=== PATIENT | female | born 1960 | race Caucasian/White ===

== ENCOUNTER → 2018-07-20 13:00 | Outpatient (CLI) | payer BC, SELFPAY | PROVIDERS: Family Provider Nurse Practitioner Family; PCP Nurse Practitioner Family | DX: Z23 Encounter for immunization (principal) | CPT/HCPCS: 90471; 90686 ==

== ENCOUNTER → 2018-09-14 07:14 | Outpatient (CLI) | payer BC, SELFPAY ==
[2018-09-14 08:04] LABS: Alanine Aminotransferase 66 IU/L (9-52); Albumin 4.6 g/dL (3.5-5.0); Albumin Globulin Ratio 1.4 (1.0-2.8); Alkaline Phosphatase 64 U/L (38-126); Aspartate Aminotransferase 34 IU/L (14-36); Bilirubin Total 0.4 mg/dL (0.2-1.3); Blood Urea Nitrogen 16 mg/dL (7-17); Calcium 9.4 mg/dL (8.4-10.2); Carbon Dioxide 25 mmol/L (22-32); Chloride 106 mmol/L (98-107); Cholesterol 197 mg/dL (140-199); Estimated Glomerular Filt Rate > 60.0 mL/min (>60); Globulin 3.2 g/dL (1.7-4.1); Glucose 106 mg/dL (70-100); HDL Cholesterol 41 mg/dL (40-60); HEMOLYSIS < 15 (0-50); LDL Cholesterol Calculated 110 mg/dL (<100); Potassium 4.1 mmol/L (3.4-5.1); Sodium 145 mmol/L (137-145); Total Protein 7.8 g/dL (6.3-8.2); Triglycerides 231 mg/dL (35-150)
[2018-09-14 09:09] LABS: Thyroid Stimulating Hormone 0.75 uIU/mL (0.47-4.68)
== END ==
PROVIDERS: PCP Nurse Practitioner Family; Visit Provider Nurse Practitioner Family
DX: E03.9 Hypothyroidism, unspecified (principal)
CPT/HCPCS: 36415; 80053; 80061; 84443

== ENCOUNTER → 2018-11-12 13:10 | Outpatient (CLI) | payer BC, SELFPAY ==
--- NOTE | 2018-11-12 | DI.MG.S_ITS ---
BILATERAL DIGITAL SCREENING MAMMOGRAM 3D/2D WITH CAD: 11/12/2018 CLINICAL: Routine screening. Comparison is made to exams dated: 01/30/2017 mammogram - [facility], 01/24/2016 mammogram, and 03/30/2015 mammogram - [facility]. The tissue of both breasts is heterogeneously dense. This may lower the sensitivity of mammography. Current study was also evaluated with a Computer Aided Detection (CAD) system. No significant masses, calcifications, or other findings are seen in either breast. There has been no significant interval change. IMPRESSION: NEGATIVE There is no mammographic evidence of malignancy. A 1 year screening mammogram is recommended. This exam was interpreted at Station ID: [id number]. NOTE: For mammograms, a report in lay terms will be sent to the patient. Approximately 15% of breast malignancies will not be visualized mammographically. In the management of a palpable breast mass, a negative mammogram must not discourage biopsy of a clinically suspicious lesion. Electronically Signed By: Shreyas castle/annelise:11/12/2018 14:28:59 letter sent: Normal Exam ACR BI-RADS Category 1: Negative 3341F
== END ==
PROVIDERS: PCP Nurse Practitioner Family; Visit Provider Nurse Practitioner Family
DX: Z12.31 Encounter for screening mammogram for malignant neoplasm of breast (principal)
CPT/HCPCS: 77063; 77067

== ENCOUNTER → 2019-02-01 11:18 | Outpatient (CLI) | payer BC, SELFPAY ==
[2019-02-01 12:50] LABS: Alanine Aminotransferase 54 IU/L (9-52); Albumin 5.1 g/dL (3.5-5.0); Albumin Globulin Ratio 1.4 (1.0-2.8); Alkaline Phosphatase 66 U/L (38-126); Aspartate Aminotransferase 34 IU/L (14-36); Bilirubin Total 0.4 mg/dL (0.2-1.3); Bilirubin Unconjugated 0.3 mg/dL (0.0-1.1); Cholesterol 232 mg/dL (140-199); Globulin 3.6 g/dL (1.7-4.1); HDL Cholesterol 44 mg/dL (40-60); HEMOLYSIS < 15 (0-50); LDL Cholesterol Calculated 134 mg/dL (<100); Total Protein 8.7 g/dL (6.3-8.2); Triglycerides 268 mg/dL (35-150)
== END ==
PROVIDERS: PCP Nurse Practitioner Family; Visit Provider Nurse Practitioner Family
DX: R74.8 Abnormal levels of other serum enzymes (principal); E78.5 Hyperlipidemia, unspecified
CPT/HCPCS: 36415; 80061; 80076

== ENCOUNTER → 2020-08-13 08:18 | Outpatient (CLI) | payer OTHER, SELFPAY ==
[2020-08-13 09:23] LABS: Add Manual Diff / Slide Review NO; Basophils Absolute Auto 0 /uL (0-100); Eosinophils Absolute Auto 100 /uL (0-450); Eosinophils Percent Auto 2.3 % (2-4); Hematocrit 38.3 % (36-46); Hemoglobin 13.4 g/dL (12.0-16.0); Lymphocytes Absolute Auto 2200 /uL (1100-4500); Lymphocytes Percent Auto 54.8 % (25-40); Mean Corpuscular HGB Conc 34.9 % (30-36); Mean Corpuscular Hemoglobin 31.5 PG (26-34); Mean Corpuscular Volume 90.3 fL (80-100); Monocytes Absolute Auto 400 /uL (0-900); Monocytes Percent Auto 10.1 % (3-14); Neutrophils Absolute Auto 1200 /uL (1500-7000); Neutrophils Percent Auto 31.8 % (50-75); Platelet Count 227 X10^3/uL (150-400); Red Blood Cell Count 4.24 X10^6/uL (4.0-5.2); Red Cell Distribution Width 12.1 % (11.6-14.8); White Blood Cell Count 3.9 X10^3/uL (4.5-11.0)
[2020-08-13 09:38] LABS: Alanine Aminotransferase 41 IU/L (<35); Albumin 4.6 g/dL (3.5-5.0); Albumin Globulin Ratio 1.5 (1.0-2.8); Alkaline Phosphatase 58 U/L (38-126); Aspartate Aminotransferase 35 IU/L (14-36); BUN Creatinine Ratio 23.5 (6-22); Bilirubin Total 0.5 mg/dL (0.2-1.3); Blood Urea Nitrogen 20 mg/dL (7-17); Calcium 9.8 mg/dL (8.4-10.2); Carbon Dioxide 27 mmol/L (22-32); Chloride 107 mmol/L (98-107); Cholesterol 195 mg/dL (140-199); Estimated Glomerular Filt Rate > 60.0 mL/min (>60); Glucose 102 mg/dL (80-110); HDL Cholesterol 37 mg/dL (40-60); HEMOLYSIS < 15 (0-50); LDL Cholesterol Calculated 112 mg/dL (<100); Potassium 4.2 mmol/L (3.4-5.1); Sodium 140 mmol/L (137-145); Total Protein 7.6 g/dL (6.3-8.2); Triglycerides 232 mg/dL (35-150)
[2020-08-13 10:04] LABS: TSH w/ Reflex to FT4 0.57 uIU/mL (0.47-4.68)
== END ==
PROVIDERS: PCP Registered Nurse Diabetes Educator; Referring Provider Registered Nurse Diabetes Educator; Visit Provider Registered Nurse Diabetes Educator
DX: E78.5 Hyperlipidemia, unspecified (principal); I10 Essential (primary) hypertension; R73.9 Hyperglycemia, unspecified; R74.8 Abnormal levels of other serum enzymes
CPT/HCPCS: 36415; 80053; 80061; 83036; 84443; 85025

== ENCOUNTER → 2020-08-27 13:10 | Outpatient (CLI) | payer OTHER, SELFPAY ==
--- NOTE | 2020-08-27 | DI.MRI.S_ITS ---
PROCEDURE: MR STROKE Pre- and post-contrast brain MRI, non-contrast brain MR angiogram, pre- and postcontrast neck MR angiogram INDICATIONS: Unspecified visual disturbance TECHNIQUE: Brain: Noncontrast axial T1 spin echo, axial T2 fast spin echo, sagittal and axial FLAIR, coronal T2 fast spin echo, axial gradient echo, axial diffusion and ADC through the brain. After the administration of contrast, axial 3D VIBE of the cranial vasculature and brain. Brain MRA: Non-contrast 3-D time of flight MR angiogram, with multiple yjxbeoz-viqddiask-ospzzdzbim (MIP) reformats performed. Neck MRA: Axial and sagittal TruFISP through the neck. Coronal dynamic MR angiogram during administration of contrast in the arterial and venous phases, with 3-dimenstional hzafpun-yimagzzae-olnayapagf (MIP) reformats constructed from subtraction images. COMPARISON: None. FINDINGS: Image quality: Excellent. BRAIN: CSF spaces: Ventricles are normal in size and shape. Basal cisterns are patent. No extra-axial fluid collections. Brain: No intracranial bleeds or mass effects. Scattered small white matter changes, probably represent chronic microvascular ischemic disease, versus statistically less likely demyelination or other infectious, inflammatory, neurodegenerative etiology, technically nonspecific. [place]-white matter interface is normal. Diffusion weighted images show no acute ischemic insults. Brainstem appears normal. Normal intravascular flow voids are present. No abnormal intracranial enhancement. Skull and face: Calvarial marrow signal is normal. Orbits appear normal. Sinuses: Sinuses and mastoids are clear. BRAIN MR ANGIOGRAM: Anterior circulation: Intracranial internal carotid arteries are normal in size and enhancement. The flow within the paired anterior cerebral arteries is normal and symmetric. The flow within the middle cerebral arteries is normal and symmetric. The anterior communicating artery is seen. No stenoses, occlusions, or aneurysms. Posterior circulation: The visualized portions of the vertebral arteries demonstrate normal caliber, and join to form a normal appearing basilar artery. The flow within the posterior cerebral arteries is normal and symmetric. No stenoses, occlusions, or aneurysms. NECK MR ANGIOGRAM: Carotids: Great vessels demonstrate a conventional anatomy as they arise from the aortic arch. The origins of the common carotid arteries appear patent. The calibers and courses of both common carotid arteries are normal. The bifurcation regions appear normal bilaterally. The internal carotid arteries demonstrate normal course and caliber. Posterior circulation: The origins of the vertebral arteries appear patent. More superior portions of both vertebral arteries demonstrate normal course and caliber, and join to form a normal appearing basilar artery. Miscellaneous: Subclavian arteries appear patent. Pre-contrast images through the neck show no soft tissue abnormalities. IMPRESSION: BRAIN MRI: No evidence of acute ischemia. Diffuse small white matter changes, probably represent chronic microvascular ischemic disease, versus statistically less likely demyelination or other infectious, inflammatory, neurodegenerative etiology, technically nonspecific. BRAIN MR ANGIOGRAM: No intracranial stenosis or occlusion NECK MR ANGIOGRAM: Normal examination. Dictated by: Ifeanyi Jones M.D. on 08/27/2020 at 14:59 Approved by: Ifeanyi Jones M.D. on 08/27/2020 at 15:06
== END ==
PROVIDERS: PCP Registered Nurse Diabetes Educator; Referring Provider Registered Nurse Diabetes Educator; Visit Provider Registered Nurse Diabetes Educator
DX: H53.9 Unspecified visual disturbance (principal)
CPT/HCPCS: 70548; 70553; A9579

== ENCOUNTER → 2020-09-05 11:37 | Outpatient (CLI) | payer OTHER, SELFPAY ==
--- NOTE | 2020-09-05 11:38 | DI.MG.S_ITS ---
BILATERAL DIGITAL SCREENING MAMMOGRAM 3D/2D WITH CAD: 09/05/2020 CLINICAL: Routine screening. Comparison is made to exams dated: 11/12/2018 mammogram, 01/30/2017 mammogram - [facility], and 01/24/2016 mammogram - [facility] The tissue of both breasts is heterogeneously dense. This may lower the sensitivity of mammography. Current study was also evaluated with a Computer Aided Detection (CAD) system. No significant masses, calcifications, or other findings are seen in either breast. There has been no significant interval change. IMPRESSION: NEGATIVE There is no mammographic evidence of malignancy. A 1 year screening mammogram is recommended. This exam was interpreted at Station ID: [id number]. NOTE: For mammograms, a report in lay terms will be sent to the patient. Approximately 15% of breast malignancies will not be visualized mammographically. In the management of a palpable breast mass, a negative mammogram must not discourage biopsy of a clinically suspicious lesion. Electronically Signed By: Geovanna maher/annelise:09/05/2020 17:01:10 letter sent: Normal Exam ACR BI-RADS Category 1: Negative 3341F
== END ==
PROVIDERS: PCP Registered Nurse Diabetes Educator; Referring Provider Registered Nurse Diabetes Educator; Visit Provider Registered Nurse Diabetes Educator
DX: Z12.31 Encounter for screening mammogram for malignant neoplasm of breast (principal)
CPT/HCPCS: 77063; 77067

== ENCOUNTER → 2020-12-28 08:29 | Outpatient (CLI) | payer OTHER, SELFPAY ==
[2020-12-28 09:48] LABS: Add Manual Diff / Slide Review NO; Basophils Absolute Auto 100 /uL (0-100); Basophils Percent Auto 1.2 % (0-2); Eosinophils Absolute Auto 100 /uL (0-450); Eosinophils Percent Auto 3.1 % (2-4); Hematocrit 39.9 % (36-46); Hemoglobin 14.1 g/dL (12.0-16.0); Lymphocytes Absolute Auto 2200 /uL (1100-4500); Lymphocytes Percent Auto 46.7 % (25-40); Mean Corpuscular HGB Conc 35.3 % (30-36); Mean Corpuscular Hemoglobin 31.4 PG (26-34); Mean Corpuscular Volume 89.1 fL (80-100); Monocytes Absolute Auto 400 /uL (0-900); Monocytes Percent Auto 8.9 % (3-14); Neutrophils Absolute Auto 1900 /uL (1500-7000); Neutrophils Percent Auto 40.1 % (50-75); Platelet Count 225 X10^3/uL (150-400); Red Blood Cell Count 4.47 X10^6/uL (4.0-5.2); Red Cell Distribution Width 12.6 % (11.6-14.8); White Blood Cell Count 4.7 X10^3/uL (4.5-11.0)
[2020-12-28 10:03] LABS: Alanine Aminotransferase 47 IU/L (<35); Albumin 4.6 g/dL (3.5-5.0); Albumin Globulin Ratio 1.3 (1.0-2.8); Alkaline Phosphatase 55 U/L (38-126); Aspartate Aminotransferase 35 IU/L (14-36); Bilirubin Total 0.4 mg/dL (0.2-1.3); Bilirubin Unconjugated 0.4 mg/dL (0.0-1.1); Cholesterol 169 mg/dL (140-199); Globulin 3.6 g/dL (1.7-4.1); HDL Cholesterol 44 mg/dL (40-60); HEMOLYSIS < 15 (0-50); LDL Cholesterol Calculated 81 mg/dL (<100); Total Protein 8.2 g/dL (6.3-8.2); Triglycerides 221 mg/dL (35-150)
== END ==
PROVIDERS: PCP Registered Nurse Diabetes Educator; Referring Provider Registered Nurse Diabetes Educator; Visit Provider Registered Nurse Diabetes Educator
DX: D72.819 Decreased white blood cell count, unspecified (principal); E78.5 Hyperlipidemia, unspecified; R74.8 Abnormal levels of other serum enzymes
CPT/HCPCS: 36415; 80061; 80076; 85025

== ENCOUNTER → 2021-12-26 12:18 | Outpatient (CLI) | payer OTHER, SELFPAY ==
--- NOTE | 2021-12-26 | DI.MG.S_ITS ---
BILATERAL DIGITAL SCREENING MAMMOGRAM 3D/2D WITH CAD: 12/26/2021 CLINICAL: Routine screening. Comparison is made to exams dated: 09/05/2020 mammogram, 11/12/2018 mammogram, and 01/30/2017 mammogram - [facility]. The tissue of both breasts is heterogeneously dense. This may lower the sensitivity of mammography. Current study was also evaluated with a Computer Aided Detection (CAD) system. No significant masses, calcifications, or other findings are seen in either breast. There has been no significant interval change. IMPRESSION: NEGATIVE There is no mammographic evidence of malignancy. A 1 year screening mammogram is recommended. This exam was interpreted at Station ID: [id number]. NOTE: For mammograms, a report in lay terms will be sent to the patient. Approximately 15% of breast malignancies will not be visualized mammographically. In the management of a palpable breast mass, a negative mammogram must not discourage biopsy of a clinically suspicious lesion. Electronically Signed By: Sebastian Pa M.D., jr/annelise:12/26/2021 16:37:57 letter sent: Normal Exam ACR BI-RADS Category 1: Negative 3341F
== END ==
PROVIDERS: PCP Registered Nurse Diabetes Educator; Referring Provider Registered Nurse Diabetes Educator; Visit Provider Registered Nurse Diabetes Educator
DX: Z12.31 Encounter for screening mammogram for malignant neoplasm of breast (principal)
CPT/HCPCS: 77063; 77067

== ENCOUNTER → 2022-05-02 10:36 | Outpatient (CLI) | payer OTHER, SELFPAY ==
--- NOTE | 2022-05-02 10:38 | DI.US.S_ITS ---
PROCEDURE: US ABDOMEN LIMITED INDICATIONS: Liver enzyme elevation TECHNIQUE: Real-time focused scanning was performed of the abdomen, with image documentation. COMPARISON: None. FINDINGS: The liver demonstrates normal size. The liver demonstrates generalized moderately increased echogenicity. This decreases ultrasound sensitivity for detection of hepatic masses. No findings of gallstones or sludge are seen. The gallbladder wall is not thickened, measuring 3 mm or less. No specific pericholecystic fluid is seen. The sonographic [place] sign is negative. There is no biliary dilatation, the common bile duct measures 2 mm. No significant pancreatic abnormality is seen on these images. IMPRESSION: The liver demonstrates increased echogenicity. This finding is nonspecific, yet it is most commonly attributed to fatty infiltration. The gallbladder demonstrates a normal sonographic appearance. No biliary dilatation is seen. Dictated by: True Lovell M.D. on 05/02/2022 at 10:31 Approved by: True Lovell M.D. on 05/02/2022 at 10:32
== END ==
PROVIDERS: PCP Registered Nurse Diabetes Educator; Referring Provider Registered Nurse Diabetes Educator; Visit Provider Registered Nurse Diabetes Educator
DX: R74.8 Abnormal levels of other serum enzymes (principal)
CPT/HCPCS: 76705

== ENCOUNTER → 2023-02-21 10:20 | Outpatient (CLI) | payer OTHER, SELFPAY ==
--- NOTE | 2023-02-21 | DI.MG.S_ITS ---
BILATERAL DIGITAL SCREENING MAMMOGRAM 3D/2D WITH CAD: 02/21/2023 CLINICAL: Routine screening. Comparison is made to exams dated: 12/26/2021 mammogram, 09/05/2020 mammogram, and 11/12/2018 mammogram - . Both breasts are heterogeneously dense, which may obscure small masses (category c / 51-75% glandular tissue). Current study was also evaluated with a Computer Aided Detection (CAD) system. No significant masses, calcifications, or other findings are seen in either breast. There has been no significant interval change. IMPRESSION: NEGATIVE There is no mammographic evidence of malignancy. A 1 year screening mammogram is recommended. Based on the Tyrer Cuzick model (a risk assessment model) the patient's lifetime risk is 7.9% and her 10 year risk is 3.5%. According to the ACR, ACS, and NCCN guidelines, an annual breast MRI exam along with mammogram is recommended if the patient's lifetime risk is 20% or greater. This exam was interpreted at Station ID: [id number]. NOTE: For mammograms, a report in lay terms will be sent to the patient. Approximately 15% of breast malignancies will not be visualized mammographically. In the management of a palpable breast mass, a negative mammogram must not discourage biopsy of a clinically suspicious lesion. Electronically Signed By: Andrea richter/annelise:02/23/2023 10:12:51 letter sent: Normal Exam ACR BI-RADS Category 1: Negative 3341F
== END ==
PROVIDERS: PCP Registered Nurse Diabetes Educator; Referring Provider Registered Nurse Diabetes Educator; Visit Provider Registered Nurse Diabetes Educator
DX: Z12.31 Encounter for screening mammogram for malignant neoplasm of breast (principal)
CPT/HCPCS: 77063; 77067

== ENCOUNTER 2023-07-17 12:14 | Emergency (ER) | payer OTHER, SELFPAY ==
[2023-07-17] VITALS (15 sets, daily range): BP systolic 116–197; BP diastolic 50–97; PULSE 52–69; RESP 12; TEMP 36.3; O2SAT 96–100; BMI 27.4
[2023-07-17 13:16] LABS: Add Manual Diff / Slide Review NO; Basophils Absolute Auto 0 /uL (0-100); Basophils Percent Auto 0.5 % (0-2); Eosinophils Absolute Auto 0 /uL (0-450); Eosinophils Percent Auto 0.6 % (2-4); Hematocrit 37.9 % (36-46); Hemoglobin 13.2 g/dL (12.0-16.0); Lymphocytes Absolute Auto 1300 /uL (1100-4500); Lymphocytes Percent Auto 17.7 % (25-40); Mean Corpuscular HGB Conc 34.8 % (30-36); Mean Corpuscular Hemoglobin 31.3 PG (26-34); Mean Corpuscular Volume 90.2 fL (80-100); Monocytes Absolute Auto 300 /uL (0-900); Monocytes Percent Auto 4.5 % (3-14); Neutrophils Absolute Auto 5500 /uL (1500-7000); Neutrophils Percent Auto 76.7 % (50-75); Platelet Count 208 X10^3/uL (150-400); Red Cell Distribution Width 12.4 % (11.6-14.8); White Blood Cell Count 7.1 X10^3/uL (4.5-11.0)
[2023-07-17 13:28] LABS: Alanine Aminotransferase 44 IU/L (<35); Albumin 4.5 g/dL (3.5-5.0); Albumin Globulin Ratio 1.3 (1.0-2.8); Alkaline Phosphatase 68 U/L (38-126); Aspartate Aminotransferase 39 IU/L (14-36); Bilirubin Total 0.6 mg/dL (0.2-1.3); Blood Urea Nitrogen 15 mg/dL (7-17); Calcium 9.3 mg/dL (8.4-10.2); Carbon Dioxide 22 mmol/L (22-32); Chloride 106 mmol/L (98-107); Estimated Glomerular Filt Rate > 60 mL/min (>60); Globulin 3.4 g/dL (1.7-4.1); Glucose 126 mg/dL (80-110); HEMOLYSIS 15 (0-50); Lipase 104 U/L (23-300); Potassium 4.2 mmol/L (3.4-5.1); Sodium 137 mmol/L (137-145); Total Protein 7.9 g/dL (6.3-8.2)
--- NOTE | 2023-07-17 13:32 | DI.CT.S_ITS ---
PROCEDURE: CT KIDNEY URETER BLADDER (KUB) INDICATIONS: Left side pain TECHNIQUE: Axial sections were acquired from the lung bases to the pubic symphysis. Coronal and sagittal reformats were performed. For radiation dose reduction, the following was used: automated exposure control, adjustment of mA and/or kV according to patient size. COMPARISON: None. FINDINGS: Image quality: Excellent. Lung bases: Unremarkable. Heart: No significant findings. URINARY: Right Kidney: No stones or hydronephrosis. Right Ureter: No hydroureter. Left Kidney: No stones or hydronephrosis. Left Ureter: No hydroureter but there is a 1.5 mm calcification in the expected course of the lower 3rd of the left ureter a blood of the bladder level seen on CT series 2, image 75. Bladder: Normal wall thickness. No stones. ABDOMEN: Liver: Unremarkable except for several scattered punctate calcified granulomas. Gallbladder: Unremarkable. Biliary ducts: Unremarkable. Pancreas: Unremarkable. Spleen: Unremarkable except for scattered punctate calcifications consistent with old granulomatous disease.. Adrenal Glands: Unremarkable. Stomach and Bowel: Stomach, small bowel loops, and colon are unremarkable. Peritoneum: No abnormal intraperitoneal fluid. No free air. Ventral Wall: No hernia. Abdominal Nodes: No enlarged retroperitoneal or mesenteric lymph nodes. Vessels: Aorta and inferior vena cava are normal in size. PELVIS: Pelvic Organs: Unremarkable. Pelvic Nodes: Unremarkable. Miscellaneous: No inguinal hernias are seen. Bones: Unremarkable. IMPRESSION: Scattered punctate calcifications are present within the liver and spleen, consistent with distant past old granulomatous disease. No hydronephrosis or nephrolithiasis bilaterally within the kidneys but there is a small 1.5 mm calcification in the expected course of the distal left ureter above the bladder level, presumably a nonobstructive very small ureteral calculus in this clinical circumstance. Dictated by: Eb Perez M.D. on 07/17/2023 at 14:04 Approved by: Eb Perez M.D. on 07/17/2023 at 14:10
--- NOTE | 2023-07-17 13:33 | ED_ITS ---
HPI - Abdominal Pain General Chief Complaint: Abdominal Pain Stated Complaint: N/D clamy extreme pain lower L ab to back Time Seen by Provider: 07/17/23 13:24 Source: patient Mode of arrival: Family Vehicle History of Present Illness HPI narrative: Patient here with complains of left lower abdominal/flank pain. Sudden onset at around 10:00 a.m.. Took ibuprofen at 11:00 a.m.. Symptoms have resolved. Patient was on the toilet at home. Had sudden onset of pain with sweating and nausea. No hematuria. No dysuria. No frequency. Never had this pain before. Patient in no distress. Related Data Home Medications Medication Instructions Recorded Confirmed cholecalciferol (vitamin D3) PO 02/17/22 07/06/23 flaxseed oil 1,000 mg capsule 1,000 mg PO DAILY 02/17/22 07/06/23 one a day womens multivit 50+ PO 02/17/22 07/06/23 vitamin B complex (B 1 tab PO DAILY 02/17/22 07/06/23 Complex-Vitamin B12 tablet) zinc 50 mg tablet 50 mg PO DAILY 02/17/22 07/06/23 Previous Rx's Medication Instructions Recorded atorvastatin 20 mg tablet 20 mg PO BEDTIME #90 tabs 03/30/23 levothyroxine 100 mcg tablet 100 mcg PO DAILY #90 tabs 03/30/23 (Synthroid) losartan 50 mg tablet 50 mg PO DAILY #90 tabs 05/18/23 ketoconazole 2 % topical cream 1 applic topical BID #60 grams 07/06/23 hydrocodone 5 mg-acetaminophen 325 1 tab PO Q6H PRN pain #16 tabs 07/17/23 mg tablet ibuprofen 600 mg tablet 600 mg PO Q6H PRN fever or pain 07/17/23 #24 tabs ondansetron 4 mg disintegrating 4 mg PO Q8H PRN nausea and 07/17/23 tablet vomiting #10 tabs tamsulosin 0.4 mg capsule 0.4 mg PO DAILY #7 caps 07/17/23 Allergies Allergy/AdvReac Type Severity Reaction Status Date / Time seasonal Allergy Mild UR symptoms Uncoded 07/06/23 13:31 Review of Systems Review of Systems Narrative: GENERAL: negative chills, fatigue, malaise, fever, sweats. HEENT: negative sinus pain, ear pain, sore throat RESPIRATORY: negative dyspnea, cough CARDIOVASCULAR: negative chest pain, palpitations GASTROINTESTINAL: Positive nausea, negative vomiting, positive abdominal pain : negative dysuria, frequency, hematuria MUSCULOSKELETAL: negative muscle or bony pain SKIN: negative rash, skin lesions NEUROLOGIC: negative weakness, numbness ROS Unobtainable: All systems reviewed & are unremarkable except as noted in HPI and below Patient History Medical History Dyslipidemia Fatty liver disease, nonalcoholic Headache Hyperglycemia Hypertension Hypothyroidism Impaired fasting blood sugar Liver enzyme elevation Visual changes Social History Smoking Status: Former smoker Smoking Status: Former smoker tobacco type: cigarettes alcohol intake frequency: holidays/special occasions only Substance Use Type: does not use Exam Narrative Exam Narrative: GENERAL: in no distress, not toxic not dyspneic HEAD: Normocephalic. EYES: Pupils equal round ENT: Mucous membranes moist. NECK: Trachea midline. CARDIOVASCULAR: Regular rate and rhythm RESPIRATORY: Clear to auscultation. Breath sounds equal bilaterally. No wheezes, rales, or rhonchi. GASTROINTESTINAL: Abdomen soft, non-tender EXTREMITIES: No gross deformities. BACK: No flank tenderness. NEURO: AOx4. SKIN: Warm and dry PSYCH: Not anxious, is cooperative Initial Vital Signs Initial Vital Signs: Vital Signs Pulse Rate 56 L 07/17/23 12:25 Pulse Oximetry 100 07/17/23 12:25 Course Orders Ordered: Discontinued Medications Sodium Chloride (Normal Saline 0.9%) 1,000 mls @ 1,000 mls/hr IV BOLUS ONE Stop: 07/17/23 14:31 Last Infusion: 07/17/23 14:48 Dose: 0 mls/hr Documented By: AMJadon Admin: 07/17/23 13:39 Dose: 1,000 mls/hr Documented By: EVIE Ondansetron HCl (Ondansetron 4 Mg Odt) 4 mg PO NOW PRN PRN Reason: Nausea And Vomiting Ondansetron HCl (Ondansetron 4 Mg/2 Ml Inj) 4 mg IV NOW PRN PRN Reason: Nausea And Vomiting Tamsulosin HCl (Tamsulosin 0.4 Mg Capsule) 0.4 mg PO NOW ONE Stop: 07/17/23 16:09 Last Admin: 07/17/23 16:13 Dose: 0.4 mg Documented By: MPO Vital Signs Vital signs: Vital Signs - 8 hr 07/17/23 12:31 07/17/23 12:25 07/17/23 12:30 Temperature 97.4 F L Pulse Rate 57 L 56 L Respiratory Rate 12 Blood Pressure 197/97 H Pulse Oximetry 97 100 99 Oxygen Delivery Method Room Air 07/17/23 12:31 07/17/23 12:31 07/17/23 13:00 Temperature Pulse Rate 52 L 53 L Respiratory Rate Blood Pressure 163/72 H Pulse Oximetry 98 97 Oxygen Delivery Method 07/17/23 13:01 07/17/23 13:01 07/17/23 13:30 Temperature Pulse Rate 54 L Respiratory Rate Blood Pressure 141/60 H 147/70 H Pulse Oximetry 98 Oxygen Delivery Method 07/17/23 13:30 07/17/23 13:50 07/17/23 13:50 Temperature Pulse Rate 69 64 Respiratory Rate Blood Pressure 124/59 L Pulse Oximetry 97 100 Oxygen Delivery Method 07/17/23 14:00 07/17/23 14:00 07/17/23 14:30 Temperature Pulse Rate 52 L Respiratory Rate Blood Pressure 125/63 131/62 Pulse Oximetry 100 Oxygen Delivery Method 07/17/23 14:30 07/17/23 14:56 07/17/23 14:56 Temperature Pulse Rate 60 54 L Respiratory Rate Blood Pressure 132/63 Pulse Oximetry 98 99 Oxygen Delivery Method 07/17/23 15:00 07/17/23 15:00 07/17/23 15:30 Temperature Pulse Rate 60 64 Respiratory Rate Blood Pressure 116/50 L Pulse Oximetry 96 96 Oxygen Delivery Method 07/17/23 15:31 07/17/23 15:31 Temperature Pulse Rate 56 L Respiratory Rate Blood Pressure 126/58 L Pulse Oximetry 97 Oxygen Delivery Method MDM - Abdominal Pain Lab Data 07/17/23 12:59 07/17/23 12:59 Labs: Lab Results 07/17/23 07/17/23 07/17/23 Range/Units 12:59 12:59 15:00 WBC 7.1 (4.5-11.0) X10^3/uL RBC 4.20 (4.0-5.2) X10^6/uL Hgb 13.2 (12.0-16.0) g/dL Hct 37.9 (36-46) % MCV 90.2 (80-100) fL MCH 31.3 (26-34) PG MCHC 34.8 (30-36) % RDW 12.4 (11.6-14.8) % Plt Count 208 (150-400) X10^3/uL Neut % (Auto) 76.7 H (50-75) % Lymph % (Auto) 17.7 L (25-40) % Williamson % (Auto) 4.5 (3-14) % Eos % (Auto) 0.6 L (2-4) % Baso % (Auto) 0.5 (0-2) % Neut # (Auto) 5500 (9325-9020) /uL Lymph # (Auto) 1300 (4935-7991) /uL Williamson # (Auto) 300 (0-900) /uL Eos # (Auto) 0 (0-450) /uL Baso # (Auto) 0 (0-100) /uL Sodium 137 (137-145) mmol/L Potassium 4.2 (3.4-5.1) mmol/L Chloride 106 (98-107) mmol/L Carbon Dioxide 22 (22-32) mmol/L BUN 15 (7-17) mg/dL Creatinine 0.88 (0.52-1.04) mg/dL Estimated GFR > 60 (>60) mL/min BUN/Creatinine Ratio 17.0 (6-22) Glucose 126 H (80-110) mg/dL Calcium 9.3 (8.4-10.2) mg/dL Total Bilirubin 0.6 (0.2-1.3) mg/dL AST 39 H (14-36) IU/L ALT 44 H (<35) IU/L Alkaline Phosphatase 68 (38-126) U/L Total Protein 7.9 (6.3-8.2) g/dL Albumin 4.5 (3.5-5.0) g/dL Globulin 3.4 (1.7-4.1) g/dL Albumin/Globulin Ratio 1.3 (1.0-2.8) Lipase 104 (23-300) U/L Urine RBC 5-10/hpf H (0-5/HPF) Urine WBC 1-5/hpf (0-5/HPF) Ur Squamous Epith Cells 1-5 /hpf (0-5/HPF) Urine Bacteria Few (2-10) H (None) Ur Culture Indicated? Specimen cultured Point of care testing: Urine Dip Bedside Urine Glucose Negative Bedside Urine Bilirubin - Negative Bedside Urine Ketone + 15 Urine Specific Fischer 1.025 Bedside Urine Occult Blood +++ Bedside Urine pH 5.5 Bedside Urine Protein +/- 15 Bedside Urine Urobilinogen - Negative Bedside Urine Nitrite - Negative Bedside Urine Leukocytes +/- [address] scan - abdomen/pelvis: Radiologist's Impression: [address] [address] [address] Scan Report Signed Patient: Ele Pettit MR#: [id number] : 1960 Acct:[id number] Age/Sex: 63 / F Date of Service: 07/17/23 Loc: ED Accession Number: [id number] ?? Procedure: CT kidney ureter bladder (KUB) Ordering Provider: Alexandru Acuña MD PROCEDURE:? CT KIDNEY URETER BLADDER (KUB) ? INDICATIONS:? Left side pain ? TECHNIQUE:? Axial sections were acquired from the lung bases to the pubic symphysis.? Coronal and sagittal reformats were performed.? For radiation dose reduction, the following was used: ?automated exposure control, adjustment of mA and/or kV according to patient size.? ? COMPARISON:? None. ? FINDINGS:? Image quality:? Excellent.? ? Lung bases:? Unremarkable.? ? Heart:? No significant findings. ? URINARY: Right Kidney: ? No stones or hydronephrosis.? Right Ureter:? No hydroureter.? ? Left Kidney: ? No stones or hydronephrosis. Left Ureter:? No hydroureter but there is a 1.5 mm calcification in the expected course of the lower 3rd of the left ureter a blood of the bladder level seen on CT series 2, image 75.? ? Bladder:? Normal wall thickness. No stones. ? ? ? ABDOMEN: Liver:? Unremarkable except for several scattered punctate calcified granulomas.? ? Gallbladder:? Unremarkable.? ? Biliary ducts:? Unremarkable.? ? Pancreas:? Unremarkable.? ? Spleen:? Unremarkable except for scattered punctate calcifications consistent with old granulomatous disease..? ? Adrenal Glands:? Unremarkable.? ? ? Stomach and Bowel:? Stomach, small bowel loops, and colon are unremarkable.? Peritoneum:? No abnormal intraperitoneal fluid.? No free air.? ? Ventral Wall: ? No hernia.? Abdominal Nodes:? No enlarged retroperitoneal or mesenteric lymph nodes.? Vessels:? Aorta and inferior vena cava are normal in size.? ? PELVIS: Pelvic Organs:? Unremarkable.? ? Pelvic Nodes: Unremarkable. Miscellaneous: No inguinal hernias are seen. ? ? ? Bones:? Unremarkable. ? IMPRESSION:? ? Scattered punctate calcifications are present within the liver and spleen, consistent with distant past old granulomatous disease.? No hydronephrosis or nephrolithiasis bilaterally within the kidneys but there is a small 1.5 mm calcification in the expected course of the distal left ureter above the bladder level, presumably a nonobstructive very small ureteral calculus in this clinical circumstance. ? Dictated by: Eb Perez M.D. on 07/17/2023 at 14:04 ? ? Approved by: Eb Perez M.D. on 07/17/2023 at 14:10 ? MDM Narrative Medical decision making narrative: Patient here with complains of left lower abdominal/flank pain. Sudden onset at around 10:00 a.m.. Took ibuprofen at 11:00 a.m.. Symptoms have resolved. Patient was on the toilet at home. Had sudden onset of pain with sweating and nausea. No hematuria. No dysuria. No frequency. Never had this pain before. Patient in no distress. After history and exam CBC CMP urinalysis CT KUB normal saline MDM CC: Left-sided abdominal pain Complicating co-morbidities: None Data collected from: Patient and Medical records reviewed: No recent visit for this complaint Differential considered: Includes but not limited to kidney stone ureteral stone UTI pyelonephritis diverticulosis diverticulitis bowel obstruction Exam documented above, pertinent findings include: Nontender abdomen Lab Test results independently reviewed as above. Pertinent findings: WBC 7.1 sodium 137 potassium 4.2 AST 39 ALT 44 lipase 104 RBC 5-10 WBC 1-5 few bacteria Imaging studies independently reviewed: CT KUB ureteral stone left side 1.5 mm Treatments: Normal saline Flomax Re-evaluations: 4:00 p.m.. Patient remains pain-free. Reviewed results with patient and . Return precautions reviewed with them. CT imaging shows kidney stone. Prescriptions provided. Referrals for Urology provided. They agree with treatment plan follow-up with urology. Discussion: Appropriate for discharge home. No pain during course of stay. Return precautions reviewed with patient and . Referral for Urology provided. Prescriptions provided as well. Not toxic at discharge. Return precautions reviewed. They desire discharge home Diagnosis: Ureteral stent Discharge Plan Departure Patient Disposition: Home Clinical Impression: Calculus of distal left ureter Instructions: DI for Kidney Stones Activity Restrictions/Additional Instructions: No driving or operating machinery when taking prescribed pain medication. CT sc an imaging does show a kidney stone that should pass. Please call provided urology offices on Thursday for office re-evaluation within a week. Return if worse if any questions or concerns. Prescription medications have been provided for you. Keep well hydrated. Prescriptions: New hydrocodone-acetaminophen 5-325 mg tablet 1 tab PO Q6H PRN (Reason: pain) Qty: 16 0RF tamsulosin 0.4 mg capsule 0.4 mg PO DAILY Qty: 7 0RF ibuprofen 600 mg tablet 600 mg PO Q6H PRN (Reason: fever or pain) Qty: 24 0RF ondansetron 4 mg tablet,disintegrating 4 mg PO Q8H PRN (Reason: nausea and vomiting) Qty: 10 0RF No Action cholecalciferol (vitamin D3) PO Patient Comments: 50 mcg daily flaxseed oil 1,000 mg capsule 1,000 mg PO DAILY Rx Instructions: administer with a meal one a day womens multivit 50+ PO zinc 50 mg tablet 50 mg PO DAILY vitamin B complex [B Complex-Vitamin B12] Tablet 1 tab PO DAILY Rx Instructions: 1,000 mg daily levothyroxine [Synthroid] 100 mcg tablet 100 mcg PO DAILY Qty: 90 3RF atorvastatin 20 mg tablet 20 mg PO BEDTIME Qty: 90 3RF losartan 50 mg tablet 50 mg PO DAILY Qty: 90 0RF ketoconazole 2 % cream 1 applic topical BID Qty: 60 0RF Referrals: Dannie Reza MD [Physician] - Alexandru Santo MD [Physician] - Chris Stark ARNP [Primary Care Provider] - Stand Alone Forms: Patient Portal/API
[2023-07-17] MEDS: SODIUM CHLORIDE 0.9% 1,000 ML 1000 ML IV (13:39)
[2023-07-17 15:54] LABS: Bacteria Urine Few (2-10); Culture Indicated Urine Specimen Cultured; RBC Urine 5-10/HPF (0-5/HPF); Squamous Epithelial Cell Urine 1-5 /HPF (0-5/HPF); WBC Urine 1-5/HPF (0-5/HPF)
[2023-07-17] MEDS: TAMSULOSIN 0.4 MG CAPSULE PO (16:13)
== END 2023-07-17 16:20 | disposition home or self-care (01) ==
PROVIDERS: Emergency Provider Emergency Medicine; PCP Registered Nurse Diabetes Educator
DX: N20.1 Calculus of ureter (principal)
CPT/HCPCS: 36415; 74176; 80053; 81003; 81015; 83690; 85025; 87086; 96360; 99284

== ENCOUNTER → 2024-02-23 09:06 | Outpatient (CLI) | payer OTHER, SELFPAY ==
--- NOTE | 2024-02-23 | DI.MG.S_ITS ---
BILATERAL DIGITAL SCREENING MAMMOGRAM 3D/2D WITH CAD: 02/23/2024 CLINICAL: Routine screening. Comparison is made to exams dated: 02/21/2023 mammogram, 12/26/2021 mammogram, and 09/05/2020 mammogram - [facility]. Both breasts are heterogeneously dense, which may obscure small masses (category c / 51-75% glandular tissue). Current study was also evaluated with a Computer Aided Detection (CAD) system. No significant masses, calcifications, or other findings are seen in either breast. There has been no significant interval change. IMPRESSION: NEGATIVE There is no mammographic evidence of malignancy. A 1 year screening mammogram is recommended. Based on the Tyrer Cuzick model (a risk assessment model) the patient's lifetime risk is 7.6% and her 10 year risk is 3.5%. According to the ACR, ACS, and NCCN guidelines, an annual breast MRI exam along with mammogram is recommended if the patient's lifetime risk is 20% or greater. This exam was interpreted at Station ID: [id number]. NOTE: For mammograms, a report in lay terms will be sent to the patient. Approximately 15% of breast malignancies will not be visualized mammographically. In the management of a palpable breast mass, a negative mammogram must not discourage biopsy of a clinically suspicious lesion. Electronically Signed By: Geovanna maher/annelise:02/23/2024 14:28:43 letter sent: Normal Exam ACR BI-RADS Category 1: Negative [id number]
== END ==
LOC: MAMMO 09:08
PROVIDERS: PCP Registered Nurse Diabetes Educator; Referring Provider Registered Nurse Diabetes Educator; Visit Provider Registered Nurse Diabetes Educator
DX: Z12.31 Encounter for screening mammogram for malignant neoplasm of breast (principal); R92.333 Mammographic heterogeneous density, bilateral breasts
CPT/HCPCS: 77063; 77067